=== PATIENT | female | born 1995 | race Caucasian/White ===

== ENCOUNTER 2019-01-04 06:47 | Emergency (ER) | payer OTHER ==
[2019-01-04] MEDS ORDERED: NORMAL SALINE 1000 ML 1,000 ML IV ONE (06:56)
--- NOTE | 2019-01-04 07:00 | ER Document Report ---
ED Medical Screen (RME) - General Chief Complaint: Flu Symptoms Stated Complaint: COUGH,VOMITING Time Seen by Provider: 01/04/19 06:55 Notes: 23-year-old female presenting with chest pain, generalized body aches, cough, intractable vomiting all night long. Saw a walk-in clinic yesterday. Got a shot of Toradol for body aches. Told to take amoxicillin. No previous reaction to amoxicillin I have treated and performed a rapid initial assessment of this patient. A comprehensive ED assessment and evaluation of the patient, analysis of test results and completion of medical decision making process will be conducted by additional ED providers. PHYSICAL EXAMINATION: GENERAL: Malaised appearing LUNGS: No respiratory distress HEART: Tachycardia TRAVEL OUTSIDE OF THE [place] IN LAST 30 DAYS: No
--- NOTE | 2019-01-04 08:31 | RADIOLOGY REPORT (SQ) ---
EXAM DESCRIPTION: CHEST 2 VIEWS COMPLETED DATE/TIME: 01/04/2019 8:05 am REASON FOR STUDY: CHEST PAIN, FEVERS, VOMITING COMPARISON: None. EXAM PARAMETERS: NUMBER OF VIEWS: two views TECHNIQUE: Digital Frontal and Lateral radiographic views of the chest acquired. RADIATION DOSE: NA LIMITATIONS: none FINDINGS: LUNGS AND PLEURA: No opacities, masses or pneumothorax. No pleural effusion. MEDIASTINUM AND HILAR STRUCTURES: No masses or contour abnormalities. HEART AND VASCULAR STRUCTURES: Heart normal size. No evidence for failure. BONES: No acute findings. HARDWARE: None in the chest. OTHER: No other significant finding. IMPRESSION: NO ACUTE RADIOGRAPHIC FINDING IN THE CHEST. TECHNICAL DOCUMENTATION: JOB ID: [id number]- All Rights Reserved Reading location - IP/workstation name: [email or web address]
[2019-01-04] MEDS ORDERED: KETOROLAC TROMETHAMINE INJ/PF 30 MG/1 ML SDV IV ONE (09:00)
[2019-01-04] MEDS ORDERED: ONDANSETRON HCL INJ/PF 4 MG/2 ML SDV IV ONE (09:00)
[2019-01-04 09:08] LABS: ABSOLUTE LYMPHOCYTES (AUTO) 0.3 10^3/uL (0.5-4.7); ABSOLUTE MONOCYTES (AUTO) 0.5 10^3/uL (0.1-1.4); ABSOLUTE NEUT (AUTO) 4.3 10^3/uL (1.7-8.2); BASOPHILS % (AUTO) 0.5 % (0-2); EOSINOPHILS % (AUTO) 0.3 % (0-6); HEMATOCRIT 42.8 % (36.0-47.0); HEMOGLOBIN 14.6 g/dL (12.0-15.5); LYMPHOCYTES % (AUTO) 6.4 % (13-45); MEAN CORPUSCULAR HEMOGLOBIN 30.1 pg (27.0-33.4); MEAN CORPUSCULAR HGB CONC 34.1 g/dL (32.0-36.0); MEAN CORPUSCULAR VOLUME 88 fl (80-97); MONOCYTES % (AUTO) 10.3 % (3-13); PLATELET COUNT 187 10^3/uL (150-450); RED BLOOD COUNT 4.85 10^6/uL (3.72-5.28); RED CELL DISTRIBUTION WIDTH 13.1 % (11.5-14.0); SEGMENTED NEUTROPHILS % (AUTO) 82.5 % (42-78); TOTAL CELLS COUNTED % (AUTO) 100 %; WHITE BLOOD COUNT 5.2 10^3/uL (4.0-10.5)
[2019-01-04 09:23] LABS: APPEARANCE,URINE SLIGHTLY-CLOUDY; BILIRUBIN,URINE NEGATIVE (NEGATIVE); COLOR,URINE YELLOW; GLUCOSE, URINE NEGATIVE (NEGATIVE); KETONES,URINE NEGATIVE (NEGATIVE); LEUKOCYTE ESTERASE,URINE NEGATIVE (NEGATIVE); NITRITE,URINE NEGATIVE (NEGATIVE); PROTEIN,URINE NEGATIVE (NEGATIVE); URINE SPECIFIC GRAVITY 1.021; UROBILINOGEN,URINE NEGATIVE mg/dL (<2.0)
[2019-01-04 09:26] LABS: ALANINE AMINOTRANSFERASE 23 U/L (9-52); ALBUMIN 4.7 g/dL (3.5-5.0); ALKALINE PHOSPHATASE 96 U/L (38-126); ANION GAP 11 (5-19); ASPARTATE AMINO TRANSFERASE 29 U/L (14-36); BILIRUBIN,DIRECT 0.2 mg/dL (0.0-0.4); BILIRUBIN,TOTAL 0.3 mg/dL (0.2-1.3); BLOOD UREA NITROGEN 8 mg/dL (7-20); CARBON DIOXIDE 24 mmol/L (22-30); CHLORIDE 106 mmol/L (98-107); GLUCOSE 99 mg/dL (75-110); LIPASE 216.7 U/L (23-300); POTASSIUM 4.4 mmol/L (3.6-5.0); SODIUM 141.2 mmol/L (137-145)
[2019-01-04] MEDS ORDERED: BENZONATATE 100 MG CAPSULE PO ONE (09:41)
--- NOTE | 2019-01-04 11:12 | ER Document Report ---
ED General - General Chief Complaint: Flu Symptoms Stated Complaint: COUGH,VOMITING Time Seen by Provider: 01/04/19 06:55 Notes: Patient is a 23-year-old female presents to the emergency department general complaints of headache, cough, congestion for the last 3 days. States she was at urgent care yesterday with a generalized headache localized to her forehead. States she was tested for influenza and strep pharyngitis. Stated both flu and strep were negative. Patient states she was placed on amoxicillin for sinusitis. States she has taken 3 doses since then. States this morning she started with generalized vomiting and diarrhea which concerned her which is why she presents to the emergency room. Patient states she also has generalized chest heaviness more so when she takes a deep breath or upon palpation of her chest. Patient denies any abdominal pain, dysuria, vaginal discharge. Past medical history: Migraines Medications: Caryl, Nasacort Allergies: None Last menstrual period: Currently TRAVEL OUTSIDE OF THE [place] IN LAST 30 DAYS: No Past Medical History - General Information source: Patient - Social History Smoking Status: Never Smoker Family History: Reviewed & Not Pertinent Patient has suicidal ideation: No Patient has homicidal ideation: No Renal/ Medical History: Denies: Hx Peritoneal Dialysis Review of Systems - Review of Systems Constitutional: Chills. denies: Fever EENT: See HPI Cardiovascular: See HPI Respiratory: See HPI Gastrointestinal: See HPI Genitourinary: See HPI Female Genitourinary: See HPI Musculoskeletal: No symptoms reported Skin: No symptoms reported Hematologic/Lymphatic: No symptoms reported Neurological/Psychological: See HPI Physical Exam - Vital signs Vitals: Temp Pulse Resp BP Pulse Ox 99.6 F 130 H 20 116/79 97 01/04/19 06:58 01/04/19 06:58 01/04/19 06:58 01/04/19 06:58 01/04/19 06:58 - Notes Notes: GENERAL: Alert, interacts well. No acute distress. HEAD: Normocephalic, atraumatic. No frontal or maxillary sinus tenderness noted EYES: Pupils equal, round, and reactive to light. Extraocular movements intact. ENT: Oral mucosa moist, tongue midline. Nares patent, TM's intact, nonerythemato us, nonbulging bilaterally. Pharynx within normal limits, no palatal petechiae or exudate noted. NECK: Full range of motion. Supple. Trachea midline. No lymphadenopathy appreciated LUNGS: Clear to auscultation bilaterally, no wheezes, rales, or rhonchi. No respiratory distress. HEART: Regular rate and rhythm. No murmur ABDOMEN: Soft, non-tender. Non-distended. Bowel sounds present in all 4 quadr ants. EXTREMITIES: Moves all 4 extremities spontaneously. No edema, normal radial and dorsalis pedis pulses bilaterally. No cyanosis. BACK: no cervical, thoracic, lumbar midline tenderness. No saddle anesthesia, normal distal neurovascular exam. NEUROLOGICAL: Alert and oriented x3. Normal speech. cranial nerves II through XII grossly intact. PSYCH: Normal affect, normal mood. SKIN: Warm, dry, normal turgor. No rashes or lesions noted. Course - Re-evaluation Re-evalutation: 01/04/19 11:23 Patient's labs show no signs of leukocytosis, no signs of anemia, no signs of electrolyte abnormalities, lipase is negative. Patient's urine shows no signs of urinary tract infection, hCG negative, no ketones and no significant elevati on in the patient's specific gravity. Patient was initially noted to be tachycardic upon arrival to the emergency room. She is no longer tachycardic at this time. Patient states she overall feels a lot better after treatments in the emergency room. Discussed likely viral diagnosis with patient and supportive treatment at home. Patient states she has a prescription for Zofran that she will take at home. Discussed use [id number] Tylenol Motrin and give a prescription for Tessalon Perles. Patient voices understanding, stable for discharge. 01/04/19 11:28 Patient's chest x-ray showed no signs of pneumonia, no signs of pneumothorax, no signs of rib fractures noted. - Vital Signs Vital signs: Temp Pulse Resp BP Pulse Ox 99.6 F 130 H 20 116/79 97 01/04/19 06:58 01/04/19 06:58 01/04/19 06:58 01/04/19 06:58 01/04/19 06:58 - Laboratory Result Diagrams: 01/04/19 08:40 01/04/19 08:40 Laboratory results interpreted by me: 01/04/19 01/04/19 08:40 08:40 Seg Neutrophils % 82.5 H Lymphocytes % 6.4 L Absolute Lymphocytes 0.3 L Urine Blood MODERATE H Urine Ascorbic Acid 40 H Discharge - Discharge Clinical Impression: Upper respiratory infection, viral Condition: Stable Disposition: HOME, SELF-CARE Instructions: Upper Respiratory Illness ([facility]), Viral Syndrome ([facility]) Additional Instructions: As we discussed you have been seen and treated in the emergency department for an upper respiratory infection, likely due to a virus. This could very well be the influenza or flu virus but there is no treatment for influenza. Please treat your signs and symptoms at home. Please take [id number] Tylenol Motrin for generalized body aches, headache, fever. Please also take prescription cough medicine as prescribed. Please take nausea medication as needed. Please stay well-hydrated and follow-up with your primary care provider. Please return to the emergency room for any other concerning symptoms. Prescriptions: Benzonatate [Tessalon Perles 100 mg Capsule] 100 mg PO Q8HP PRN #40 capsule PRN Reason:
[2019-01-04 12:13] VITALS: BP 105/66
== END 2019-01-04 12:13 | disposition home or self-care (01) ==
LOC: ER 06:47
DX: J06.9 Acute upper respiratory infection, unspecified (principal); B97.89 Other viral agents as the cause of diseases classified elsewhere; J32.9 Chronic sinusitis, unspecified; R51 Headache; R05 Cough; R11.10 Vomiting, unspecified; R19.7 Diarrhea, unspecified; R09.89 Other specified symptoms and signs involving the circulatory and respiratory systems; R00.0 Tachycardia, unspecified
CPT/HCPCS: 99283; 96361; 96374; 96375; 36415; 83690; 85025; 81025; 80053; 81001; 71046; J1885; J2405; J7030

== ENCOUNTER 2019-11-02 16:10 | Emergency (ER) | payer OTHER ==
--- NOTE | 2019-11-02 16:36 | ER Document Report ---
ED Medical Screen (RME) - General Chief Complaint: Pelvic Pain Stated Complaint: PELVIC PAIN Time Seen by Provider: 11/02/19 16:33 Mode of Arrival: Ambulatory Information source: Patient Notes: 24-year-old female presented to ED for complaint of pelvic pain for 4 to 5 months. It got much worse yesterday. She states she had a brown and yellow vaginal discharge yesterday during intercourse. Patient states her minute last menstrual cycle was 11 October. The reason they came in today was because the pain was so bad just before coming and that she was in tears. Patient is alert oriented respirations regular nonlabored at this time. She states she is not on any kind of control. She states the pain is on her right pelvic area and she has had multiple cyst in the past. He states it is never hurt during intercourse in the past. I have greeted and performed a rapid initial assessment of this patient. A comprehensive ED assessment and evaluation of the patient, analysis of test results and completion of medical decision making process will be conducted by an additional ED providers. TRAVEL OUTSIDE OF THE [place] IN LAST 30 DAYS: No - Related Data Allergies/Adverse Reactions: No Known Allergies Allergy (Verified 11/02/19 16:30) Past Medical History Renal/ Medical History: Denies: Hx Peritoneal Dialysis Physical Exam - Vital signs Vitals: Temp Pulse BP Pulse Ox 98.6 F 79 116/78 99 11/02/19 16:13 11/02/19 16:13 11/02/19 16:13 11/02/19 16:13 Course - Vital Signs Vital signs: Temp Pulse Resp BP Pulse Ox 98.6 F 79 116/78 99 11/02/19 16:13 11/02/19 16:13 11/02/19 16:13 11/02/19 16:13
[2019-11-02 17:05] LABS: ABSOLUTE BASOPHILS # (AUTO) 0.1 10^3/uL (0.0-0.2); ABSOLUTE EOSINOPHILS # (AUTO) 0.1 10^3/uL (0.0-0.6); ABSOLUTE LYMPHOCYTES (AUTO) 2.8 10^3/uL (0.5-4.7); ABSOLUTE MONOCYTES (AUTO) 0.7 10^3/uL (0.1-1.4); ABSOLUTE NEUT (AUTO) 5.2 10^3/uL (1.7-8.2); BASOPHILS % (AUTO) 0.6 % (0-2); HEMATOCRIT 41.7 % (36.0-47.0); MEAN CORPUSCULAR HEMOGLOBIN 29.8 pg (27.0-33.4); MEAN CORPUSCULAR HGB CONC 33.6 g/dL (32.0-36.0); MEAN CORPUSCULAR VOLUME 89 fl (80-97); MONOCYTES % (AUTO) 7.7 % (3-13); PLATELET COUNT 216 10^3/uL (150-450); RED BLOOD COUNT 4.69 10^6/uL (3.72-5.28); RED CELL DISTRIBUTION WIDTH 13.1 % (11.5-14.0); SEGMENTED NEUTROPHILS % (AUTO) 58.7 % (42-78); TOTAL CELLS COUNTED % (AUTO) 100 %; WHITE BLOOD COUNT 8.9 10^3/uL (4.0-10.5)
[2019-11-02 17:08] LABS: APPEARANCE,URINE CLEAR; BILIRUBIN,URINE NEGATIVE (NEGATIVE); COLOR,URINE YELLOW; GLUCOSE, URINE NEGATIVE (NEGATIVE); KETONES,URINE NEGATIVE (NEGATIVE); PROTEIN,URINE NEGATIVE (NEGATIVE); URINE SPECIFIC GRAVITY 1.016; UROBILINOGEN,URINE NEGATIVE mg/dL (<2.0)
[2019-11-02 17:24] LABS: ALBUMIN 4.5 g/dL (3.5-5.0); ALKALINE PHOSPHATASE 80 U/L (38-126); ANION GAP 10 (5-19); ASPARTATE AMINO TRANSFERASE 20 U/L (14-36); BILIRUBIN,DIRECT 0.1 mg/dL (0.0-0.4); BILIRUBIN,TOTAL 0.4 mg/dL (0.2-1.3); BLOOD UREA NITROGEN 13 mg/dL (7-20); CALCIUM 9.5 mg/dL (8.4-10.2); CARBON DIOXIDE 26 mmol/L (22-30); CHLORIDE 103 mmol/L (98-107); GLUCOSE 84 mg/dL (75-110); POTASSIUM 4.3 mmol/L (3.6-5.0); TOTAL PROTEIN 7.1 g/dL (6.3-8.2)
[2019-11-02] MEDS ORDERED: IBUPROFEN 800 MG TABLET PO ONE (18:00)
--- NOTE | 2019-11-02 18:06 | ER Document Report ---
ED General - General Chief Complaint: Vaginal Pain Stated Complaint: PELVIC PAIN Time Seen by Provider: 11/02/19 16:33 Mode of Arrival: Ambulatory Information source: Patient Notes: 24-year-old female presents to the emergency department with complaints of lower abdominal pain mostly on the right side with pelvic pain for the past 4 to 5 months. Reports some days it feels like her vagina is going to fall out. Reports it was worse yesterday. Reports increased pain with sex for the past 4 to 5 months. She reports she does have pain throughout the day, some days worse than others. Denies pain with void. Reports she had some vaginal discharge yesterday. She is G0, P0. Reports maternal grandmother and possibly mother had ovarian cancer. Reports both women had hysterectomies. She denies fever vomiting diarrhea. TRAVEL OUTSIDE OF THE [place] IN LAST 30 DAYS: No - HPI Onset: Other - 45 months Onset/Duration: Persistent, Worse Associated symptoms: None Exacerbated by: Other - [place] Relieved by: Denies Similar symptoms previously: No Recently seen / treated by doctor: No - Related Data Allergies/Adverse Reactions: No Known Allergies Allergy (Verified 11/02/19 16:30) Past Medical History - General Information source: Patient Last Menstrual Period: 10/11 - Social History Smoking Status: Unknown if Ever Smoked Chew tobacco use (# tins/day): No Frequency of alcohol use: None Drug Abuse: None Lives with: Family Family History: Reviewed & Not Pertinent Patient has suicidal ideation: No Patient has homicidal ideation: No Renal/ Medical History: Denies: Hx Peritoneal Dialysis GI Medical History: Reports: Hx Irritable Bowel Surgical Hx: Negative Review of Systems - Review of Systems Notes: Review HPI for review of systems., All other systems negative Physical Exam - Vital signs Vitals: Temp Pulse BP Pulse Ox 98.6 F 79 116/78 99 11/02/19 16:13 11/02/19 16:13 11/02/19 16:13 11/02/19 16:13 - General General appearance: Appears well, Alert, Anxious In distress: None - HEENT Head: Normocephalic Eyes: Normal Conjunctiva: Normal Extraocular movements intact: Yes Eyelashes: Normal Neck: Normal, Supple. No: Lymphadenopathy - Respiratory Respiratory status: No respiratory distress Chest status: Nontender Breath sounds: Normal Chest palpation: Normal - Cardiovascular Rhythm: Regular Heart sounds: Normal auscultation Murmur: No - Abdominal Inspection: Normal Distension: No distension Bowel sounds: Hyperactive Tenderness: Tender - Right upper quad right lower quad Organomegaly: No organomegaly Adult front & back diagram: 1 - Reports area tender to palpate - Genitourinary External exam: Normal Speculum exam: Normal Vaginal bleeding: None Bimanuel exam: Cervical motion tender, Adnexal tenderness - Back Back: Normal, CVA tenderness. No: Vertebra tenderness - Extremities General upper extremity: Normal ROM, Normal strength General lower extremity: Normal ROM, Normal strength - Neurological Neuro grossly intact: Yes Cognition: Normal Orientation: AAOx4 Sara Coma Scale Eye Opening: Spontaneous Sara Coma Scale Verbal: Oriented Sara Coma Scale Motor: Obeys Commands [place] Coma Scale Total: 15 Speech: Normal - Psychological Associated symptoms: Normal affect, Normal mood, Tearful - Skin Skin Temperature: Warm Skin Moisture: Dry Skin Color: Normal Course - Re-evaluation Re-evalutation: 11/02/19 18:04 24-year-old female with right-sided abdominal pain pelvic pain feels like her vagina is going to follow-up with pain with sex for the past 4 to 5 months. Worse yesterday. She also reports she has the pain during the day that comes a nd goes. Reports vaginal discharge yesterday. She reports she has not had a Pap smear done in approximately 3 and half years. She is not on any type of control. She denies other symptoms such as fever vomiting diarrhea. Reports she has history of IBS so she usually goes on a regular basis but has been constipated lately. 11/02/19 16:45 11/02/19 16:45 MCV 89 fl (80-97) 11/02/19 16:45 MCH 29.8 pg (27.0-33.4) 11/02/19 16:45 MCHC 33.6 g/dL (32.0-36.0) 11/02/19 16:45 RDW 13.1 % (11.5-14.0) 11/02/19 16:45 Seg Neutrophils % 58.7 % (42-78) 11/02/19 16:45 Chloride 103 mmol/L (98-107) 11/02/19 16:45 Carbon Dioxide 26 mmol/L (22-30) 11/02/19 16:45 Anion Gap 10 (5-19) 11/02/19 16:45 Est GFR ( Amer) > 60 (>60) 11/02/19 16:45 Glucose 84 mg/dL (75-110) 11/02/19 16:45 Calcium 9.5 mg/dL (8.4-10.2) 11/02/19 16:45 Total Bilirubin 0.4 mg/dL (0.2-1.3) 11/02/19 16:45 AST 20 U/L (14-36) 11/02/19 16:45 Alkaline Phosphatase 80 U/L (38-126) 11/02/19 16:45 Total Protein 7.1 g/dL (6.3-8.2) 11/02/19 16:45 Albumin 4.5 g/dL (3.5-5.0) 11/02/19 16:45 Serum HCG, Qual NEGATIVE (NEGATIVE) 11/02/19 16:45 Urine Color YELLOW 11/02/19 16:45 Urine Appearance CLEAR 11/02/19 16:45 Urine pH 7.0 (5.0-9.0) 11/02/19 16:45 Ur Specific [place] 1.016 11/02/19 16:45 Urine Protein NEGATIVE mg/dL (NEGATIVE) 11/02/19 16:45 Urine Glucose (UA) NEGATIVE mg/dL (NEGATIVE) 11/02/19 16:45 Urine Ketones NEGATIVE mg/dL (NEGATIVE) 11/02/19 16:45 Urine Blood NEGATIVE (NEGATIVE) 11/02/19 16:45 Urine RBC (Auto) 2 /HPF 11/02/19 16:45 11/02/19 18:43 Transvaginal US 11/02/19 16:37 IMPRESSION: Nonvisualized right ovary. Otherwise unremarkable. 11/02/19 19:46 Labs on remarkable ultrasound negative CT negative. Pelvic negative. Patient was instructed on all results. She is . She does have [facility] she can follow-up with. She was instructed to follow-up with [facility] monitor symptoms return for concerns. She was reminded that we only did a pelvic here. We did not do a Pap smear. She should follow-up to have a Pap smear done because she has not had one in 3 1/2 years and she does have a family history of ovarian cancer. She verbalized understand all instructions. Transvaginal US 11/02/19 16:37 IMPRESSION: Nonvisualized right ovary. Otherwise unremarkable. Abdomen/Pelvis CT 11/02/19 18:45 IMPRESSION: NO ACUTE FINDINGS IN THE ABDOMEN OR PELVIS ON CT SCAN WITH IV CONTRAST. 11/02/19 19:53 Dictation of this chart was performed using voice recognition software; therefore, there may be some unintended grammatical errors. - Vital Signs Vital signs: Temp Pulse Resp BP Pulse Ox 98.6 F 79 116/78 99 11/02/19 16:33 11/02/19 16:13 11/02/19 16:13 11/02/19 16:33 - Laboratory Result Diagrams: 11/02/19 16:45 11/02/19 16:45 Laboratory results interpreted by me: 11/02/19 16:45 Urine Ascorbic Acid 40 H - Diagnostic Test Radiology reviewed: Image reviewed, Reports reviewed Procedures - Pelvic Exam Pelvic exam Time completed: 18:02 Cultures obtained: Yes Wet prep obtained: Yes Herpes culture obtained: No POC sent to lab: No Foreign body removed: No Bimanual exam performed: Yes Witnessed by: Javier RICKS Discharge - Discharge Clinical Impression: Pelvic pain Abdominal pain Qualifiers: Abdominal location: unspecified location Qualified Code(s): R10.9 - Unspecified abdominal pain Condition: Stable Disposition: HOME, SELF-CARE Instructions: Abdominal Pain ([facility]), Use of [id number]-Pulcxqd Ibuprofen ([facility]), Pelvic Pain ([facility]) Additional Instructions: *You have been evaluated for abdominal and pelvic pain *Your ultrasound and CT were negative for any acute injury, your labs were u nremarkable *Your STD cultures were negative *Take ibuprofen as indicated for pain *Follow up with a primary care provider within one week for referral to [facility] as indicated *Return to ED for worsening condition, changes, needs *Return to ED if not better in 24 hours
[2019-11-02 18:18] LABS: T.VAGINALIS (WET MOUNT) NO TRICHOMONAS SEEN; WBCS (WET MOUNT) NO WBCS SEEN; YEAST (WET MOUNT) YEAST SEEN
--- NOTE | 2019-11-02 18:29 | RADIOLOGY REPORT (SQ) ---
EXAM DESCRIPTION: U/S NON-OB PELVIS TV W/O DOP COMPLETED DATE/TIME: 11/02/2019 5:30 pm REASON FOR STUDY: Right-sided pelvic pain off and on for 4 months wo COMPARISON: None. TECHNIQUE: Dynamic and static grayscale images acquired of the pelvis via transvaginal approach and recorded on PACS. Additional selected color Doppler and spectral images recorded. LIMITATIONS: Bowel gas FINDINGS: UTERUS: Contour normal. No mass. ENDOMETRIAL STRIPE: No focal or generalized thickening. No masses. CERVIX: No nabothian cysts. RIGHT OVARY AND DOPPLER: Ovary not visualized. LEFT OVARY AND DOPPLER: Normal size. No worrisome masses. Normal arterial vascular flow without evide nce for torsion. FREE FLUID: None noted. OTHER: No other significant finding. MEASUREMENTS: UTERUS: 7.2 x 5.3 x 5.6 cm ENDOMETRIAL STRIPE: 1.2 cm RIGHT OVARY: Not visualized. LEFT OVARY: 2 x 2.5 x 1.8 cm IMPRESSION: Nonvisualized right ovary. Otherwise unremarkable. TECHNICAL DOCUMENTATION: JOB ID: [id number] [place]-72 2010 [employer]- All Rights Reserved Rev-04/13 Reading location - IP/workstation name: [email or web address]
[2019-11-02 19:45] LABS: CHLAM PCR NOT DETECTED (NOT DETECT)
--- NOTE | 2019-11-02 19:45 | RADIOLOGY REPORT (SQ) ---
EXAM DESCRIPTION: CT ABD/PELVIS WITH IV ONLY COMPLETED DATE/TIME: 11/02/2019 7:13 pm REASON FOR STUDY: abd pain, pelvic pain COMPARISON: None. TECHNIQUE: CT scan of the abdomen and pelvis performed using helical scanning technique with dynamic intravenous contrast injection. No oral contrast. Images reviewed with lung, soft tissue, and bone w indows. Reconstructed coronal and sagittal MPR images reviewed. Delayed images for evaluation of the urinary system also acquired. All images stored on PACS. All CT scanners at this facility use dose modulation, iterative reconstruction, and/or weight based d osing when appropriate to reduce radiation dose to as low as reasonably achievable (ALARA). [facility]: Dose Right [facility]: CareDose [facility]: Dose Right [facility]: Teradose 4D [facility]: [employer] CONTRAST TYPE AND DOSE: contrast/concentration: Isovue 350.00 mg/ml; Total Contrast Delivered: 71.0 ml; Total Saline Delivered: 41.0 ml RENAL FUNCTION: GFR > 60. RADIATION DOSE: CT Rad equipment meets quality standard of care and radiation dose reduction techniq ues were employed. CTDIvol: 4.8 - 5.2 mGy. DLP: 538 mGy-cm.. LIMITATIONS: None. FINDINGS: LOWER CHEST: No significant findings. LIVER: Normal size. No enhancing masses. No dilated ducts. SPLEEN: Normal size. No focal lesions. PANCREAS: No masses identified. No significant calcifications. No adjacent inflammation or peripancre atic fluid collections. Pancreatic duct not dilated. GALLBLADDER: No calcified stones. No inflammatory changes to suggest cholecystitis. ADRENAL GLANDS: No significant masses. RIGHT KIDNEY AND URETER: No cysts identified. No solid masses identified. No calcified stones. No hyd ronephrosis or hydroureter. LEFT KIDNEY AND URETER: No cysts identified. No solid masses identified. No calcified stones. No hydr onephrosis or hydroureter. AORTA AND VESSELS: No aneurysm. No dissection. Renal arteries, SMA, celiac without significant stenos is. RETROPERITONEUM: No bulky retroperitoneal adenopathy. BOWEL AND PERITONEAL CAVITY: No obstruction or inflammatory changes. No free fluid. APPENDIX: Normal. PELVIS: No mass. No free fluid. Unremarkable bladder. ABDOMINAL WALL: No masses. No hernias. BONES: No acute findings. Bilateral pars interarticularis defects at the L5 level. OTHER: No other significant finding. IMPRESSION: NO ACUTE FINDINGS IN THE ABDOMEN OR PELVIS ON CT SCAN WITH IV CONTRAST. TECHNICAL DOCUMENTATION: JOB ID: [id number] [place]-72 Quality ID # [id number]: Final reports with documentation of one or more dose reduction techniques (e.g., Au tomated exposure control, adjustment of the mA and/or kV according to patient size, use of iterative reconstruction technique) 2010 [employer]- All Rights Reserved Reading location - IP/workstation name: [email or web address]
[2019-11-02 20:06] VITALS: BP 106/72
== END 2019-11-02 20:09 | disposition home or self-care (01) ==
LOC: ER 16:10
DX: R10.2 Pelvic and perineal pain (principal); R10.9 Unspecified abdominal pain; R10.30 Lower abdominal pain, unspecified
CPT/HCPCS: 36415; 74177; 76830; 80053; 81001; 84703; 85025; 87210; 87491; 87591; 99284